=== PATIENT | female | born 1985 | race Caucasian/White ===

== ENCOUNTER 2019-01-07 18:27 | Emergency (ER) | payer SELFPAY ==
[2019-01-07 18:36] VITALS: RESP 20
[2019-01-07] MEDS ORDERED: Sodium Chloride 0.9% 1,000 ML IV ONE (19:15)
[2019-01-07] MEDS ORDERED: Sodium Chloride 0.9% 1,000 ML ONE (19:25)
[2019-01-07 19:30] LABS: BASO # 0.1 K/uL (0.0-0.2); BASO % 0.7 % (0.0-2.0); EOS # 0.1 K/uL (0.0-0.7); EOS % 1.2 % (0.0-4.0); HEMOGLOBIN 13.9 g/dL (11.0-16.0); LYMPH # 2.3 K/uL (1.0-4.3); LYMPH % 28.7 % (20.0-40.0); MEAN CELL VOLUME 86.7 fL (81.0-99.0); MEAN CORPUSCULAR HEMOGLOBIN 27.7 pg (27.0-31.0); MEAN CORPUSCULAR HGB CONC 31.9 g/dL (33.0-37.0); MEAN PLATELET VOLUME 8.5 fL (7.2-11.7); MONO # 0.6 K/uL (0.0-0.8); MONO % 7.6 % (0.0-10.0); NEUT # 4.8 K/uL (1.8-7.0); NEUT % 61.8 % (50.0-75.0); RBC 5.03 Mil/uL (3.80-5.20); RED CELL DISTRIBUTION WIDTH 13.9 % (11.5-14.5); WHITE BLOOD COUNT 7.8 K/uL (4.8-10.8)
[2019-01-07 19:31] LABS: SQUAMOUS EPITHIAL 1 /hpf (0-5); URINE BACTERIA RARE (<OCC); URINE BILIRUBIN NEGATIVE (NEGATIVE); URINE BLOOD NEGATIVE (NEGATIVE); URINE CLARITY Hazy (Clear); URINE COLOR Yellow (YELLOW); URINE GLUCOSE (UA) NORMAL (Normal); URINE LEUKOCYTE ESTERASE NEG Leu/uL (Negative); URINE PROTEIN NEGATIVE (NEGATIVE); URINE UROBILINOGEN NORMAL mg/dL (0.2-1.0)
[2019-01-07 19:34] LABS: HCG,QUALITATIVE URINE NEGATIVE (NEGATIVE)
[2019-01-07 19:52] LABS: ALB/GLOB RATIO 1.3 (1.0-2.1); ALBUMIN 4.9 g/dL (3.5-5.0); ALT/SGPT 19 U/L (9-52); AST/SGOT 23 U/L (14-36); BLOOD UREA NITROGEN 14 mg/dL (7-17); CALCIUM 9.5 mg/dl (8.6-10.4); GFR NON-AFRICAN AMERICAN > 60; LIPASE 136 U/L (23-300)
[2019-01-07] MEDS ORDERED: Magnesium Citrate Oral SOL (300 ml) PO ONE (20:22)
--- NOTE | 2019-01-07 20:22 | C.PDOC ---
History Of Present Illness Patient is a 33 year old female who presents to the ED c/o colicky right sided abdominal pain for the past week. Patient also reports that she has irregular vaginal bleeding and is concerned she may be . Patient denies any fever, nausea, vomiting, diarrhea, or SOB. Time Seen by Provider: 01/07/19 19:05 Chief Complaint (Nursing): Female Genitourinary History Per: Patient History/Exam Limitations: no limitations Onset/Duration Of Symptoms: Days (1 week ) Current Symptoms Are (Timing): Still Present Quality Of Discomfort: "Pain" Associated Symptoms: denies: Fever, Nausea, Vomiting, Diarrhea Recent travel outside of the [place]: No Additional History Per: Patient Abnormal Vaginal Bleeding: Yes Past Medical History Reviewed: Historical Data, Nursing Documentation, Vital Signs Vital Signs: Last Vital Signs Temp 98.5 F 01/07/19 18:34 Pulse 83 01/07/19 18:34 Resp 20 01/07/19 18:34 BP 123/77 01/07/19 18:34 Pulse Ox 98 01/07/19 18:34 - Medical History PMH: No Chronic Diseases Surgical History: Cholecystectomy Family History: States: Unknown Family Hx - Social History Hx Alcohol Use: No Hx Substance Use: No - Immunization History Hx Tetanus Toxoid Vaccination: No Hx Influenza Vaccination: No Hx Pneumococcal Vaccination: No Review Of Systems Constitutional: Negative for: Fever Respiratory: Negative for: Shortness of Breath Gastrointestinal: Positive for: Abdominal Pain (right sided ). Negative for: Nausea, Vomiting, Diarrhea Genitourinary: Positive for: Vaginal Bleeding (irregular ) Physical Exam - Physical Exam Appears: Non-toxic, No Acute Distress, Other ( female ) Skin: Normal Color, Warm, Dry Head: Atraumatic, Normacephalic Oral Mucosa: Moist Neck: Normal ROM, Supple Chest: Symmetrical Cardiovascular: Rhythm Regular, No Murmur Respiratory: Normal Breath Sounds, No Rales, No Rhonchi, No Wheezing Gastrointestinal/Abdominal: Soft Extremity: Normal ROM Neurological/Psych: Oriented x3, Normal Speech ED Course And Treatment - Laboratory Results Result Diagrams: 01/07/19 19:23 01/07/19 19:23 Lab Results: Total Bilirubin 0.4 mg/dL (0.2-1.3) 01/07/19 19:23 AST 23 U/L (14-36) 01/07/19 19:23 ALT 19 U/L (9-52) 01/07/19 19: Alkaline Phosphatase 94 U/L (38-126) 01/07/19 19: Total Protein 8.7 g/dL (6.3-8.3) H 01/07/19 19: Albumin 4.9 g/dL (3.5-5.0) 01/07/19 19: Globulin 3.8 gm/dL (2.2-3.9) 01/07/19: Albumin/Globulin Ratio 1.3 (1.0-2.1) 01/07/19 19: Lipase 136 U/L (23-300) 01/07/19 19: Urine Color Yellow (YELLOW) 01/07/19: Urine Clarity Hazy (Clear) 01/07/19: Urine pH 5.0 (5.0-8.0) 01/07/19: Ur Specific [place] 1.028 (1.003-1.030) 01/07/19: Urine Protein Negative mg/dL (NEGATIVE) 01/07/19: Urine Glucose (UA) Normal mg/dL (Normal) 01/07/19: Urine Ketones Negative mg/dL (NEGATIVE) 01/07/19: Urine Blood Negative (NEGATIVE) 01/07/19: Urine Nitrate Negative (NEGATIVE) 01/07/19: Urine Bilirubin Negative (NEGATIVE) 01/07/19: Urine Urobilinogen Normal mg/dL (0.2-1.0) 01/07/19: Ur Leukocyte Esterase Neg Tatyana/uL (Negative) 01/07/19 19: Urine WBC (Auto) 2 /hpf (0-5) 01/07/19: Urine RBC (Auto) 2 /hpf (0-3) 01/07/19: Ur Squamous Epith Cells 1 /hpf (0-5) 01/07/19: Urine Bacteria Rare (<OCC) 01/07/19 19: Urine HCG, Qual Negative (NEGATIVE) 01/07/19 19: Urine HCG, Qual Negative (NEGATIVE) 01/07/19 19:23 Lab Interpretation: Normal (ua neg.) Urine POC: Negative O2 Sat by Pulse Oximetry: 98 (on RA) Pulse Ox Interpretation: Normal - Radiology CXR: Interpreted by Me CXR Interpretation: Yes: No Acute Disease - Other Rad abd x 2 X-Ray: Interpreted by Me (+FOS) Reevaluation Time: 20:21 Reassessment Condition: Unchanged (remains asymptomatic) Medical Decision Making Medical Decision Making: Plan: Obstructive Series Labs Urinalysis HCG Urinalysis IV Fluids Magnesium Citrate 300ml PO chronic constipation NOT Disposition Doctor Will See Patient In The: Office Counseled Patient/Family Regarding: Studies Performed, Diagnosis - Disposition Referrals: [facility] [Outside] [facility] [Outside] [facility] [Outside] [facility] [Outside] [facility] [Outside] Disposition: HOME/ ROUTINE Disposition Time: 20:22 Condition: GOOD Additional Instructions: examanes normales prueba de embarasso, NEGATIVO cambios de dieta y ejercisio purgante occasionalmente addie necessario Instructions: Constipation in Adults Forms: [facility] (Azeri) Print Language: TRINIDADIAN - Clinical Impression Clinical Impression: Abdominal pain, colicky - Scribe Statement The provider has reviewed the documentation as recorded by the Scribjasbir Jean-Baptiste All medical record entries made by the Scribe were at my direction and personally dictated by me. I have reviewed the chart and agree that the record accurately reflects my personal performance of the history, physical exam, medical decision making, and the department course for this patient. I have also personally directed, reviewed, and agree with the discharge instructions and disposition.
[2019-01-07 21:13] VITALS: BP 119/75; PULSE 74; TEMP 98.9; O2SAT 100
--- NOTE | 2019-01-08 10:00 | RAD ---
Date of service: 01/07/2019 PROCEDURE: Radiographs of the chest and abdomen (obstructive series) HISTORY: Abdominal pain COMPARISON: No prior. TECHNIQUE: AP radiograph of the chest, with upright and supine radiographs of the abdomen. FINDINGS: CHEST: Lungs: Clear. Cardiovascular: Normal size heart. No pulmonary vascular congestion. No aortic atherosclerotic calcification present Pleura: No pleural fluid. No pneumothorax. Other findings: None. ABDOMEN AND PELVIS: Bowel: Unremarkable bowel gas pattern. No evidence of mechanical obstruction however there is a large amount of stool seen throughout the colon consistent with fecal retention/constipation. Free air: None. Bones: Unremarkable. Other findings: Cholecystectomy clips IMPRESSION: Unremarkable radiographs of chest.. Findings consistent with constipation.. No evidence of mechanical bowel obstruction. Cholecystectomy
== END 2019-01-07 21:13 | disposition home or self-care (01) ==
LOC: C.ER 18:27
DX: R10.84 Generalized abdominal pain (principal)
CPT/HCPCS: 74022; 80053; 81001; 83690; 84703; 85025; 96360; 99285; J7030